=== PATIENT | female | born 1985 ===

== ENCOUNTER 2019-06-04 18:24 | Emergency (ER) | payer BC, OTHER ==
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
== END 2019-06-04 19:25 | disposition home or self-care (01) ==
LOC: MW.ED 18:24
DX: Z04.1 Encounter for examination and observation following transport accident (principal); Z3A.12 12 weeks gestation of pregnancy
CPT/HCPCS: 99283

== ENCOUNTER 2019-11-29 13:44 | Inpatient (IN) | payer BC, OTHER ==
[2019-11-29] MEDS ORDERED: Nalbuphine 10 MG/1 ML Vial IVPUSH PRN (15:15)
[2019-11-29] MEDS ORDERED: Water For Irrigation,Sterile 1,000 ML Container IRR PRN (15:15)
[2019-11-29] MEDS ORDERED: Sodium Chloride 0.9% 10 ML SDV IV PRN (15:15)
[2019-11-29] MEDS ORDERED: Methylergonovine 0.2 MG/1 ML Amp IM PRN (15:15)
[2019-11-29] MEDS ORDERED: Misoprostol 200 MCG Tab PO PRN (15:15)
[2019-11-29] MEDS ORDERED: Oxytocin/0.9 % Sodium Chloride 30 UNIT/500 ML BAG IV SCH ×2 (15:15)
[2019-11-29] MEDS ORDERED: Butorphanol 1 MG/ML SDV IVPUSH PRN (15:15)
[2019-11-29] MEDS ORDERED: Misoprostol 25 MCG (1/4 of 100 MCG) Tab VAG PRN ×2 (15:15)
[2019-11-29] MEDS ORDERED: Terbutaline 1 MG/ML SDV SUBCUT PRN (15:15)
[2019-11-29] MEDS ORDERED: Lidocaine 1% 50 ML MDV INJECT PRN (15:15)
[2019-11-29] MEDS ORDERED: Tranexamic Acid 1,000 MG in Sodium Chloride 0.9% 100 ML IV PRN (15:15)
[2019-11-29] MEDS ORDERED: Carboprost Tromethamine 250 MCG/1 ML Amp IM PRN (15:15)
[2019-11-29] MEDS ORDERED: Sodium Chloride 0.9% 2.5 ML Syringe FLUSH PRN (15:15)
[2019-11-29] MEDS ORDERED: Sodium Chloride 0.9% 10 ML Syringe FLUSH PRN (15:15)
[2019-11-29] MEDS ORDERED: Ondansetron 4 MG/2 ML SDV IVPUSH PRN (15:15)
[2019-11-29] MEDS ORDERED: Misoprostol 25 MCG (1/4 of 100 MCG) Tab PO ONE (15:22)
[2019-11-29] MEDS ORDERED: [UNRECOGNIZED DRUG - REMARK] PO SCH (15:30)
--- NOTE | 2019-11-29 15:50 | PCM.LDHP ---
L&D History of Present Illness - General Date of Service: 11/29/19 Admit Problem/Dx: Patient Status Order with Admit Dx/Problem 11/29/19 14:27 Patient Status [ADT] Routine Admission Diagnosis/Problem Admission Diagnosis/Problem 11/29/19 15:45 34 yo presenting for IOL at 38 5/7 weeks (EDC: 12/09/19), AMA, O+, Rubella Immune, GBS negative Source of Information: Patient History Limitations: Reports: No Limitations - Related Data Allergies/Adverse Reactions: Allergies Allergy/AdvReac Type Severity Reaction Status Date / Time No Known Allergies Allergy Verified 06/04/19 18:45 Home Medications: Home Meds Comb No.42/Folic Acid [Prena1 Chew Tablet] 1.4 mg PO ASDIRECTED [History] 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: - Infectious Disease History Infectious Disease History: Reports: Chicken Pox Social & Family History - Family History Family Medical History: Noncontributory - Caffeine Use Caffeine Use: Reports: None H&P Review of Systems - Review of Systems: Review Of Systems: See Below General: Reports: No Symptoms HEENT: Reports: No Symptoms Pulmonary: Reports: No Symptoms Cardiovascular: Reports: No Symptoms Gastrointestinal: Reports: No Symptoms Genitourinary: Reports: No Symptoms Musculoskeletal: Reports: No Symptoms Skin: Reports: No Symptoms Psychiatric: Reports: No Symptoms Neurological: Reports: No Symptoms Hematologic/Lymphatic: Reports: No Symptoms Immunologic: Reports: No Symptoms L&D Exam - Exam Exam: See Below - Vital Signs Weight: 245 lb - OB Specific Presentation: Transverse - Exam General: Alert, Oriented, Cooperative Lungs: Normal Respiratory Effort GI/Abdominal Exam: Soft, Non-Tender Rectal Exam: Deferred Genitourinary: Deferred Back Exam: Normal Inspection, Full Range of Motion Extremities: Normal Inspection, Normal Range of Motion, Non-Tender Skin: Warm, Dry, Intact Neurological: Strength Equal Bilateral, Normal Gait, Normal Speech, Normal Tone , Sensation Intact Psychiatric: Alert, Normal Affect, Normal Mood - Patient Data Lab Results Last 24 hrs: Laboratory Results - last 24 hr 11/29/19 Range/Units 14:22 Membrane Rupture NEGATIVE - Problem List (1) Supervision of normal IUP (intrauterine ) in multigravida SNOMED Code(s): 921263482, 891808397, 831564585 ICD Code: Z34.80 - ENCOUNTER FOR SUPRVSN OF NORMAL , UNSP TRIMESTER Status: Acute Priority: High Current Visit: Yes Qualifiers: Trimester: third trimester Qualified Code(s): Z34.83 - Encounter for supervision of other normal , third trimester Problem List Initiated/Reviewed/Updated: Yes Orders Last 24hrs: Active Orders 24 hr Category Date Time Status Patient Status [ADT] Routine ADT 11/29/19 14:27 Active Bedrest Bathroom Privileges [RC] ASDIRECTED Care 11/29/19 15:15 Active Communication Order [RC] ASDIRECTED Care 11/29/19 15:15 Active Communication Order [RC] ASDIRECTED Care 11/29/19 15:15 Active Heart Tones [RC] CONTINUOUS Care 11/29/19 15:15 Active Non Stress Test [RC] PER UNIT ROUTINE Care 11/29/19 14:27 Active May Shower [RC] ASDIRECTED Care 11/29/19 15:15 Active Notify Provider [RC] PRN Care 11/29/19 15:15 Active Notify Provider [RC] PRN Care 11/29/19 15:15 Active Notify Provider [RC] STAT Care 11/29/19 15:15 Active Oxygen Therapy [RC] ASDIRECTED Care 11/29/19 15:15 Active Up ad Ghazala [RC] ASDIRECTED Care 11/29/19 14:27 Active Vaginal Exam [RC] Click to Edit Care 11/29/19 14:27 Active Vaginal Exam [RC] PRN Care 11/29/19 15:15 Active Vaginal Exam [RC] PRN Care 11/29/19 15:15 Active Vital Signs [RC] PER UNIT ROUTINE Care 11/29/19 14:27 Active Vital Signs [RC] PER UNIT ROUTINE Care 11/29/19 15:15 Active CBC W/O DIFF,HEMOGRAM [HEME] Routine Lab 11/29/19 15:34 Received RPR (SYPHILIS SERO) W/ RFLX [REF] Routine Lab 11/29/19 15:34 Received TYPE AND SCREEN [BBK] Routine Lab 11/29/19 15:34 Received Butorphanol [Stadol] Med 11/29/19 15:15 Active 1 mg IVPUSH Q1H PRN Carboprost Tromethamine [Hemabate DS] Med 11/29/19 15:15 Active 250 mcg IM ASDIRECTED PRN Lactated Ringers [Ringers, Lactated] 1,000 ml Med 11/29/19 15:15 Active IV ASDIRECTED Lidocaine 1% [Xylocaine 1%] Med 11/29/19 15:15 Active 50 ml INJECT ONETIME PRN Methylergonovine [Methergine] Med 11/29/19 15:15 Active 0.2 mg IM ASDIRECTED PRN Nalbuphine [Nubain] Med 11/29/19 15:15 Active 10 mg IVPUSH Q1H PRN Ondansetron [Zofran] Med 11/29/19 15:15 Active 4 mg IVPUSH Q4H PRN Oxytocin/0.9 % Sodium Chloride [Oxytocin 30 Unit/500 ML Med 11/29/19 15:15 Active -NS] 30 unit in 500 ml IV TITRATE Oxytocin/0.9 % Sodium Chloride [Oxytocin 30 Unit/500 ML Med 11/29/19 15:15 Active -NS] 30 unit in 500 ml IV TITRATE Patient's Own Medication [Ptom] Med 11/29/19 15:30 Active 1 each PO ASDIRECTED Sodium Chloride 0.9% [Normal Saline] [facility] 11/29/19 15:15 Active 10 ml IV ASDIRECTED PRN Sodium Chloride 0.9% [Saline Flush] [facility] 11/29/19 15:15 Active 10 ml FLUSH ASDIRECTED PRN Sodium Chloride 0.9% [Saline Flush] Med 11/29/19 15:15 Active 2.5 ml FLUSH ASDIRECTED PRN Terbutaline [Brethine] Med 11/29/19 15:15 Active 0.25 mg SUBCUT ASDIRECTED PRN Tranexamic Acid [Cyklokapron] 1,000 mg Med 11/29/19 15:15 Active Sodium Chloride 0.9% [Normal Saline] 100 ml IV ONETIME Water For Irrigation,Sterile [Sterile Water for Med 11/29/19 15:15 Active Irrigation] 1,000 ml IRR ASDIRECTED PRN miSOPROStoL [Cytotec] Med 11/29/19 15:15 Active 200 mcg PO ONETIME PRN miSOPROStoL [Cytotec] Med 11/29/19 15:15 Active 25 mcg VAG ONETIME PRN miSOPROStoL [Cytotec] Med 11/29/19 15:15 Active 25 mcg VAG Q4H PRN Scalp Electrode [WOMSER] Per Unit Routine Oth 11/29/19 15:15 Ordered Medication Administration Instruction [OM.PC] Q3H Oth 11/29/19 15:15 Ordered Peripheral IV Insertion Adult [OM.PC] Routine Oth 11/29/19 15:15 Ordered Resuscitation Status Routine Resus Stat 11/29/19 14:27 Ordered Medication Orders Butorphanol Tartrate (Stadol) 1 mg IVPUSH Q1H PRN PRN Reason: Pain Carboprost Tromethamine (Hemabate Ds) 250 mcg IM ASDIRECTED PRN PRN Reason: Post Hemorrhage Lactated Ringer's (Ringers, Lactated) 1,000 mls @ 150 mls/hr IV ASDIRECTED DAVEY Oxytocin/Sodium Chloride (Oxytocin 30 Unit/500 Ml-Ns) 30 unit in 500 mls @ 999 mls/hr IV TITRATE DAVEY Oxytocin/Sodium Chloride (Oxytocin 30 Unit/500 Ml-Ns) 30 unit in 500 mls @ 2 mls/hr IV TITRATE DAVEY; Protocol Tranexamic Acid 1,000 mg/ (Sodium Chloride) 110 mls @ 660 mls/hr IV ONETIME PRN PRN Reason: Bleeding Lidocaine HCl (Xylocaine 1%) 50 ml INJECT ONETIME PRN PRN Reason: Laceration repair Methylergonovine Maleate (Methergine) 0.2 mg IM ASDIRECTED PRN PRN Reason: Post Hemorrhage Misoprostol (Cytotec) 200 mcg PO ONETIME PRN PRN Reason: Post Hemorrhage Misoprostol (Cytotec) 25 mcg VAG ONETIME PRN PRN Reason: Cervical Ripening Misoprostol (Cytotec) 25 mcg VAG Q4H PRN PRN Reason: Cervical Ripening Nalbuphine HCl (Nubain) 10 mg IVPUSH Q1H PRN PRN Reason: Pain (severe 7-10) Ondansetron HCl (Zofran) 4 mg IVPUSH Q4H PRN PRN Reason: Nausea/Vomiting Comb No.42/Folic Acid [Prena1 Chew Tablet] 1.4 M 1 each PO ASDIRECTED DAVEY Sodium Chloride (Saline Flush) 10 ml FLUSH ASDIRECTED PRN PRN Reason: Keep Vein Open Sodium Chloride (Saline Flush) 2.5 ml FLUSH ASDIRECTED PRN PRN Reason: Keep Vein Open Sodium Chloride (Normal Saline) 10 ml IV ASDIRECTED PRN PRN Reason: IV Use Sterile Water (Sterile Water For Irrigation) 1,000 ml IRR ASDIRECTED PRN PRN Reason: delivery Terbutaline Sulfate (Brethine) 0.25 mg SUBCUT ASDIRECTED PRN PRN Reason: Tacysystole Assessment/Plan Comment:: Admit: A: 34 yo presenting for IOL at 38 5/7 weeks (EDC: 12/09/19), AMA, O+, Rubella Immune, GBS negative, 2-3cm/50%/-2, soft, posterior P: Admit, pitocin to IVF, anticipate , Dr. Gertrudis sandoval
[2019-11-29] MEDS: Lactated Ringers 1,000 ML IV SCH ×2 (16:02→23:00)
[2019-11-29] MEDS ORDERED: Ropivacaine 0.2% PF 2 MG/ML 20 ML SDV ONE (23:45)
[2019-11-29] MEDS ORDERED: Ropivacaine HCl/PF 100 ML ONE (23:45)
[2019-11-29] MEDS ORDERED: fentaNYL 100 MCG/2 ML SDV ONE (23:45)
[2019-11-30] MEDS: Lactated Ringers 1,000 ML IV SCH
--- NOTE | 2019-11-30 00:26 | PCM.PREANE ---
Preanesthetic Assessment - Procedure Proposed Procedure: Pitocin, active labor, 4cm requests BERNICE. - Anesthesia/Transfusion/Family Hx Anesthesia History: Prior Anesthesia Without Reaction Family History of Anesthesia Reaction: No Transfusion History: No Prior Transfusion(s) Intubation History: Unknown - Review of Systems General: No Symptoms Pulmonary: No Symptoms Cardiovascular: No Symptoms Gastrointestinal: No Symptoms Neurological: No Symptoms Other: Reports: None - Physical Assessment NPO Status Date: 11/29/19 NPO Status Time: 23:30 (Clear liquids) Height: 1.78 m Weight: 111.13 kg ASA Class: 2 Mental Status: Alert & Oriented x3 Dentition: Reports: Normal Dentition Thyro-Mental Finger Breadths: 3 Mouth Opening Finger Breadths: 3 ROM/Head Extension: Full Lungs: Clear to Auscultation Cardiovascular: Regular Rate - Lab Values: Laboratory Last Values WBC 10.96 K/uL (4.0-11.0) 11/29/19 15:34 RBC 4.62 M/uL (4.30-5.90) 11/29/19 15:34 Hgb 11.6 g/dL (12.0-16.0) L 11/29/19 15:34 Hct 33.9 % (36.0-46.0) L 11/29/19 15:34 MCV 73.4 fL (80.0-98.0) L 11/29/19 15:34 MCH 25.1 pg (27.0-32.0) L 11/29/19 15:34 MCHC 34.2 g/dL (31.0-37.0) 11/29/19 15:34 RDW Std Deviation 47.5 fl (28.0-62.0) 11/29/19 15:34 RDW Coeff of Al 18 % (11.0-15.0) H 11/29/19 15:34 Plt Count 228 K/uL (150-400) 11/29/19 15:34 Nucleated RBC % 0.0 /100WBC 11/29/19 15:34 Nucleated RBCs # 0 K/uL 11/29/19 15:34 Membrane Rupture NEGATIVE 11/29/19 14:22 Blood Type O POSITIVE 11/29/19 15:34 Antibody Screen NEGATIVE 11/29/19 15:34 - Allergies Allergies/Adverse Reactions: Allergies Allergy/AdvReac Type Severity Reaction Status Date / Time No Known Allergies Allergy Verified 06/04/19 18:45 - Blood Blood Available: No Product(s) Available: None - Anesthesia Plan Pre-Op Medication Ordered: None - Acknowledgements Anesthesia Type Planned: Epidural Pt an Appropriate Candidate for the Planned Anesthesia: Yes Alternatives and Risks of Anesthesia Discussed w Pt/Guardian: Yes Pt/Guardian Understands and Agrees with Anesthesia Plan: Yes Additional Comments: Discussed, ? answered, permit signed, wishes to proceed. 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: - Infectious Disease History Infectious Disease History: Reports: Chicken Pox - SUBSTANCE USE Smoking Status *Q: Never Smoker Second Hand Smoke Exposure: No Recreational Drug Use History: No - HOME MEDS Home Medications: Home Meds Comb No.42/Folic Acid [Prena1 Chew Tablet] 1.4 mg PO ASDIRECTED [History] - CURRENT (IN HOUSE) MEDS Current Meds: Current Medications Butorphanol Tartrate (Stadol) 1 mg IVPUSH Q1H PRN PRN Reason: Pain Carboprost Tromethamine (Hemabate Ds) 250 mcg IM ASDIRECTED PRN PRN Reason: Post Hemorrhage Lactated Ringer's (Ringers, Lactated) 1,000 mls @ 150 mls/hr IV ASDIRECTED DAVEY Last Admin: 11/30/19 00:00 Dose: 150 mls/hr Oxytocin/Sodium Chloride (Oxytocin 30 Unit/500 Ml-Ns) 30 unit in 500 mls @ 999 mls/hr IV TITRATE DAVEY Oxytocin/Sodium Chloride (Oxytocin 30 Unit/500 Ml-Ns) 30 unit in 500 mls @ 2 mls/hr IV TITRATE DAVEY; Protocol Last Titration: 11/29/19 23:22 Dose: 12 munits/min, 12 mls/hr Tranexamic Acid 1,000 mg/ (Sodium Chloride) 110 mls @ 660 mls/hr IV ONETIME PRN PRN Reason: Bleeding Lidocaine HCl (Xylocaine 1%) 50 ml INJECT ONETIME PRN PRN Reason: Laceration repair Methylergonovine Maleate (Methergine) 0.2 mg IM ASDIRECTED PRN PRN Reason: Post Hemorrhage Misoprostol (Cytotec) 200 mcg PO ONETIME PRN PRN Reason: Post Hemorrhage Misoprostol (Cytotec) 25 mcg VAG ONETIME PRN PRN Reason: Cervical Ripening Misoprostol (Cytotec) 25 mcg VAG Q4H PRN PRN Reason: Cervical Ripening Nalbuphine HCl (Nubain) 10 mg IVPUSH Q1H PRN PRN Reason: Pain (severe 7-10) Last Admin: 11/29/19 22:05 Dose: 10 mg Ondansetron HCl (Zofran) 4 mg IVPUSH Q4H PRN PRN Reason: Nausea/Vomiting Comb No.42/Folic Acid [Prena1 Chew Tablet] 1.4 M 1 each PO ASDIRECTED DAVEY Sodium Chloride (Saline Flush) 10 ml FLUSH ASDIRECTED PRN PRN Reason: Keep Vein Open Sodium Chloride (Saline Flush) 2.5 ml FLUSH ASDIRECTED PRN PRN Reason: Keep Vein Open Sodium Chloride (Normal Saline) 10 ml IV ASDIRECTED PRN PRN Reason: IV Use Sterile Water (Sterile Water For Irrigation) 1,000 ml IRR ASDIRECTED PRN PRN Reason: delivery Terbutaline Sulfate (Brethine) 0.25 mg SUBCUT ASDIRECTED PRN PRN Reason: Tacysystole Discontinued Medications Fentanyl (Sublimaze) Confirm Administered Dose 100 mcg .ROUTE .STK-MED ONE Stop: 11/29/19 23:46 Ropivacaine (Naropin 0.2%) Confirm Administered Dose 100 mls @ as directed .ROUTE .STK-MED ONE Stop: 11/29/19 23:46 Misoprostol (Cytotec) 25 mcg PO ONETIME ONE Stop: 11/29/19 15:23 Ropivacaine (Naropin 0.2%) Confirm Administered Dose 20 ml .ROUTE .STK-MED ONE Stop: 11/29/19 23:46
--- NOTE | 2019-11-30 00:48 | PCM.PRNOTE ---
- Free Text/Narrative Note: Active labor, pain 7/10, on Pitocin, 4cm requests BERNICE. Discussed, ? answered, permit signed. Acceptable candidate. Procedure without issues. See anesthesia record. Test negative. Pain 1/10 post bolus with gtt infusing at 8ml/hr.
--- NOTE | 2019-11-30 02:50 | PCM.DEL ---
L & D Note - General Info Date of Service: 11/30/19 Mother's Due Date: 12/09/19 - Delivery Note Labor: Induced by Oxytocin Delivery Outcome: Livebirth Infant Delivery Method: Spontaneous Vaginal Delivery-Single Presentation: Vertex Nuchal Cord: None Anesthesia Type: Epidural Amniotic Fluid Description: Clear Episiotomy Type: None Laceration: None Placenta: Manual Removal (Manual Removal by Dr. Caba) Cord: 3 Vessels Score 1 min: 6 Score 5 min: 7 Second Stage Interventions: Reports: Second Nurse Assessed Progress of Descent, Second Nurse Reviewed Contraction Pattern, Second Nurse Reviewed Heart Tones, Pushing Effectively, Pushing, Pulls Own Legs Back Delivery Comments (Free Text/Narrative):: viable infant female, head delivered with good pushing, shoulders and body followed easily after, cord clamped and cut at 30 seconds, baby to warmer for assessment and PPV, weight pending, APGARs 6/7, Pitocin to IVF, manual removal of placenta by Dr. Caba, 3VC, EBL 150 mL, perineum intact, mom left in stable condition with nurse at bedside for assessment, baby to nursery with Dr. Escalante and respiratory present to assess baby - General Info Date of Service: 11/30/19 Admission Dx/Problem (Free Text): Patient Status Order with Admit Dx/Problem 11/29/19 14:27 Patient Status [ADT] Routine Admission Diagnosis/Problem Admission Diagnosis/Problem 11/29/19 15:45 34 yo presenting for IOL at 38 5/7 weeks (EDC: 12/09/19), AMA, O+, Rubella Immune, GBS negative Functional Status: Reports: Pain Controlled - Review of Systems General: Reports: No Symptoms HEENT: Reports: No Symptoms Pulmonary: Reports: No Symptoms Cardiovascular: Reports: No Symptoms Gastrointestinal: Reports: No Symptoms Genitourinary: Reports: No Symptoms Musculoskeletal: Reports: No Symptoms Skin: Reports: No Symptoms Neurological: Reports: No Symptoms Psychiatric: Reports: No Symptoms - Patient Data Weight - Most Recent: 245 lb Lab Results Last 24 Hours: Laboratory Results - last 24 hr 11/29/19 11/29/19 11/29/19 Range/Units 14:22 15:34 15:34 WBC 10.96 (4.0-11.0) K/uL RBC 4.62 (4.30-5.90) M/uL Hgb 11.6 L (12.0-16.0) g/dL Hct 33.9 L (36.0-46.0) % MCV 73.4 L (80.0-98.0) fL MCH 25.1 L (27.0-32.0) pg MCHC 34.2 (31.0-37.0) g/dL RDW Std Deviation 47.5 (28.0-62.0) fl RDW Coeff of Al 18 H (11.0-15.0) % Plt Count 228 (150-400) K/uL Nucleated RBC % 0.0 /100WBC Nucleated RBCs # 0 K/uL Membrane Rupture NEGATIVE Blood Type O POSITIVE Antibody Screen NEGATIVE Med Orders - Current: Current Medications Butorphanol Tartrate (Stadol) 1 mg IVPUSH Q1H PRN PRN Reason: Pain Carboprost Tromethamine (Hemabate Ds) 250 mcg IM ASDIRECTED PRN PRN Reason: Post Hemorrhage Lactated Ringer's (Ringers, Lactated) 1,000 mls @ 150 mls/hr IV ASDIRECTED DAVEY Last Admin: 11/30/19 00:00 Dose: 150 mls/hr Oxytocin/Sodium Chloride (Oxytocin 30 Unit/500 Ml-Ns) 30 unit in 500 mls @ 999 mls/hr IV TITRATE DAVEY Oxytocin/Sodium Chloride (Oxytocin 30 Unit/500 Ml-Ns) 30 unit in 500 mls @ 2 mls/hr IV TITRATE DAVEY; Protocol Last Titration: 11/30/19 00:37 Dose: 14 munits/min, 14 mls/hr Tranexamic Acid 1,000 mg/ (Sodium Chloride) 110 mls @ 660 mls/hr IV ONETIME PRN PRN Reason: Bleeding Lidocaine HCl (Xylocaine 1%) 50 ml INJECT ONETIME PRN PRN Reason: Laceration repair Methylergonovine Maleate (Methergine) 0.2 mg IM ASDIRECTED PRN PRN Reason: Post Hemorrhage Misoprostol (Cytotec) 200 mcg PO ONETIME PRN PRN Reason: Post Hemorrhage Misoprostol (Cytotec) 25 mcg VAG ONETIME PRN PRN Reason: Cervical Ripening Misoprostol (Cytotec) 25 mcg VAG Q4H PRN PRN Reason: Cervical Ripening Nalbuphine HCl (Nubain) 10 mg IVPUSH Q1H PRN PRN Reason: Pain (severe 7-10) Last Admin: 11/29/19 22:05 Dose: 10 mg Ondansetron HCl (Zofran) 4 mg IVPUSH Q4H PRN PRN Reason: Nausea/Vomiting Comb No.42/Folic Acid [Prena1 Chew Tablet] 1.4 M 1 each PO ASDIRECTED DAVEY Sodium Chloride (Saline Flush) 10 ml FLUSH ASDIRECTED PRN PRN Reason: Keep Vein Open Sodium Chloride (Saline Flush) 2.5 ml FLUSH ASDIRECTED PRN PRN Reason: Keep Vein Open Sodium Chloride (Normal Saline) 10 ml IV ASDIRECTED PRN PRN Reason: IV Use Sterile Water (Sterile Water For Irrigation) 1,000 ml IRR ASDIRECTED PRN PRN Reason: delivery Terbutaline Sulfate (Brethine) 0.25 mg SUBCUT ASDIRECTED PRN PRN Reason: Tacysystole Discontinued Medications Fentanyl (Sublimaze) Confirm Administered Dose 100 mcg .ROUTE .STK-MED ONE Stop: 11/29/19 23:46 Ropivacaine (Naropin 0.2%) Confirm Administered Dose 100 mls @ as directed .ROUTE .STK-MED ONE Stop: 11/29/19 23:46 Misoprostol (Cytotec) 25 mcg PO ONETIME ONE Stop: 11/29/19 15:23 Ropivacaine (Naropin 0.2%) Confirm Administered Dose 20 ml .ROUTE .STK-MED ONE Stop: 11/29/19 23:46 - Exam General: Alert, Oriented, Cooperative, No Acute Distress Lungs: Normal Respiratory Effort GI/Abdominal Exam: Soft, Non-Tender (Female) Exam: Normal Bimanual Exam Back Exam: Normal Inspection Extremities: Normal Inspection, Non-Tender, Normal Capillary Refill Skin: Warm, Dry, Intact Neurological: No New Focal Deficit, Normal Speech, Normal Tone Psy/Mental Status: Alert, Normal Affect, Normal Mood - Problem List & Annotations (1) Supervision of normal IUP (intrauterine ) in multigravida SNOMED Code(s): 939912433, 910557553, 366787925 Code(s): Z34.80 - ENCOUNTER FOR SUPRVSN OF NORMAL , UNSP TRIMESTER Status: Acute Priority: High Current Visit: Yes Qualifiers: Trimester: third trimester Qualified Code(s): Z34.83 - Encounter for supervision of other normal , third trimester (2) (normal spontaneous vaginal delivery) SNOMED Code(s): 14994873, 736014410 Code(s): O80 - ENCOUNTER FOR FULL-TERM UNCOMPLICATED DELIVERY Status: Acute Priority: High Current Visit: Yes - Problem List Review Problem List Initiated/Reviewed/Updated: Yes - Plan Plan:: Admit A: 34 yo presenting for IOL at 38 5/7 weeks (EDC: 12/09/19), AMA, O+, Rubella Immune, GBS negative, 2-3cm/50%/-2, soft, posterior P: Admit, pitocin to IVF, anticipate , Dr. Caba updated Labor A: viable female, cord clamped and cut at 30 seconds, baby to warmer for assessment and PPV, weight pending, APGARs 6/7, Pitocin to IVF, manual removal of placenta by Dr. Caba, 3VC, EBL 150 mL, perineum intact, mom left in stable condition with nurse at bedside for assessment, baby to nursery with Dr. Escalante and respiratory present for assessment P: Routine plan of care. Dr. Caba updated.
[2019-11-30] MEDS ORDERED: oxyCODONE 5 MG Tab PO PRN (03:06)
[2019-11-30] MEDS ORDERED: Docusate Sodium 100 MG Cap PO PRN (03:06)
[2019-11-30] MEDS ORDERED: Lanolin 100% Cream 7 GM Tube TOP PRN (03:06)
[2019-11-30] MEDS ORDERED: Benzocaine/Menthol 20%-0.5% Spray 78 GM Cannister TOP PRN (03:06)
[2019-11-30] MEDS ORDERED: Ibuprofen 800 MG Tab PO PRN (03:06)
[2019-11-30] MEDS ORDERED: Ibuprofen 400 MG Tab PO PRN (03:06)
[2019-11-30] MEDS ORDERED: Acetaminophen 500 MG Tab PO PRN ×2 (03:06)
[2019-11-30] MEDS ORDERED: Bisacodyl 10 MG Supp RECTAL PRN (03:06)
[2019-11-30] MEDS ORDERED: Witch Hazel Medicated Pads 40/Jar TOP PRN (03:06)
--- NOTE | 2019-11-30 10:46 | PCM.PNPP ---
- General Info Date of Service: 11/30/19 Admission Dx/Problem (Free Text): Patient Status Order with Admit Dx/Problem 11/29/19 14:27 Patient Status [ADT] Routine Admission Diagnosis/Problem Admission Diagnosis/Problem 11/29/19 15:45 34 yo presenting for IOL at 38 5/7 weeks (EDC: 12/09/19), AMA, O+, Rubella Immune, GBS negative Functional Status: Reports: Pain Controlled - Review of Systems General: Reports: No Symptoms HEENT: Reports: No Symptoms Pulmonary: Reports: No Symptoms Cardiovascular: Reports: No Symptoms Gastrointestinal: Reports: No Symptoms Genitourinary: Reports: No Symptoms Musculoskeletal: Reports: No Symptoms Skin: Reports: No Symptoms Neurological: Reports: No Symptoms Psychiatric: Reports: No Symptoms - General Info Date of Service: 11/30/19 - Patient Data Vital Signs - Most Recent: Last Vital Signs Temp 97.8 F 11/30/19 08:01 Pulse Resp 14 11/30/19 08:01 BP 129/78 11/30/19 08:01 Pulse Ox 96 11/30/19 08:01 Weight - Most Recent: 245 lb Lab Results - Last 24 Hours: Laboratory Results - last 24 hr 11/29/19 11/29/19 11/29/19 Range/Units 14:22 15:34 15:34 WBC 10.96 (4.0-11.0) K/uL RBC 4.62 (4.30-5.90) M/uL Hgb 11.6 L (12.0-16.0) g/dL Hct 33.9 L (36.0-46.0) % MCV 73.4 L (80.0-98.0) fL MCH 25.1 L (27.0-32.0) pg MCHC 34.2 (31.0-37.0) g/dL RDW Std Deviation 47.5 (28.0-62.0) fl RDW Coeff of Al 18 H (11.0-15.0) % Plt Count 228 (150-400) K/uL Nucleated RBC % 0.0 /100WBC Nucleated RBCs # 0 K/uL Membrane Rupture NEGATIVE Blood Type O POSITIVE Antibody Screen NEGATIVE Med Orders - Current: Current Medications Acetaminophen (Tylenol Extra Strength) 500 mg PO Q4H PRN PRN Reason: Pain Acetaminophen (Tylenol Extra Strength) 1,000 mg PO Q4H PRN PRN Reason: Pain Benzocaine/Menthol (Dermoplast Pain Relief 20%-0.5% [place]) 78 gm TOP ASDIRECTED PRN PRN Reason: Perineal Comfort Measure Bisacodyl (Dulcolax) 10 mg RECTAL ONETIME PRN PRN Reason: Constipation Docusate Sodium (Colace) 100 mg PO BID PRN PRN Reason: Constipation Emollient Ointment (Lansinoh Hpa) 0 gm TOP ASDIRECTED PRN PRN Reason: Sore Nipples Ibuprofen (Motrin) 400 mg PO Q4H PRN PRN Reason: Pain Ibuprofen (Motrin) 800 mg PO Q6H PRN PRN Reason: Pain Oxycodone HCl (Oxycodone) 5 mg PO Q2H PRN PRN Reason: Pain Witch Maria Eugenia (Tucks) 1 pad TOP ASDIRECTED PRN PRN Reason: comfort care Discontinued Medications Butorphanol Tartrate (Stadol) 1 mg IVPUSH Q1H PRN PRN Reason: Pain Carboprost Tromethamine (Hemabate Ds) 250 mcg IM ASDIRECTED PRN PRN Reason: Post Hemorrhage Fentanyl (Sublimaze) Confirm Administered Dose 100 mcg .ROUTE .[facility] ONE Stop: 11/29/19 23:46 Lactated Ringer's (Ringers, Lactated) 1,000 mls @ 150 mls/hr IV ASDIRECTED [facility] Last Admin: 11/30/19 00:00 Dose: 150 mls/hr Oxytocin/Sodium Chloride (Oxytocin 30 Unit/500 Ml-Ns) 30 unit in 500 mls @ 999 mls/hr IV TITRATE [facility]AVEY Oxytocin/Sodium Chloride (Oxytocin 30 Unit/500 Ml-Ns) 30 unit in 500 mls @ 2 mls/hr IV TITRATE [facility]; Protocol Last Titration: 11/30/19 00:37 Dose: 14 munits/min, 14 mls/hr Tranexamic Acid 1,000 mg/ (Sodium Chloride) 110 mls @ 660 mls/hr IV ONETIME PRN PRN Reason: Bleeding Ropivacaine (Naropin 0.2%) Confirm Administered Dose 100 mls @ as directed .ROUTE .[facility] ONE Stop: 11/29/19 23:46 Lidocaine HCl (Xylocaine 1%) 50 ml INJECT ONETIME PRN PRN Reason: Laceration repair Methylergonovine Maleate (Methergine) 0.2 mg IM ASDIRECTED PRN PRN Reason: Post Hemorrhage Misoprostol (Cytotec) 200 mcg PO ONETIME PRN PRN Reason: Post Hemorrhage Misoprostol (Cytotec) 25 mcg VAG ONETIME PRN PRN Reason: Cervical Ripening Misoprostol (Cytotec) 25 mcg VAG Q4H PRN PRN Reason: Cervical Ripening Misoprostol (Cytotec) 25 mcg PO ONETIME ONE Stop: 11/29/19 15:23 Nalbuphine HCl (Nubain) 10 mg IVPUSH Q1H PRN PRN Reason: Pain (severe 7-10) Last Admin: 11/29/19 22:05 Dose: 10 mg Ondansetron HCl (Zofran) 4 mg IVPUSH Q4H PRN PRN Reason: Nausea/Vomiting Comb No.42/Folic Acid [Prena1 Chew Tablet] 1.4 M 1 each PO ASDIRECTED [facility] Ropivacaine (Naropin 0.2%) Confirm Administered Dose 20 ml .ROUTE .[facility] ONE Stop: 11/29/19 23:46 Sodium Chloride (Saline Flush) 10 ml FLUSH ASDIRECTED PRN PRN Reason: Keep Vein Open Sodium Chloride (Saline Flush) 2.5 ml FLUSH ASDIRECTED PRN PRN Reason: Keep Vein Open Sodium Chloride (Normal Saline) 10 ml IV ASDIRECTED PRN PRN Reason: IV Use Sterile Water (Sterile Water For Irrigation) 1,000 ml IRR ASDIRECTED PRN PRN Reason: delivery Terbutaline Sulfate (Brethine) 0.25 mg SUBCUT ASDIRECTED PRN PRN Reason: Tacysystole - Interaction Infant Disposition, : [place] in Room with Family Feeding: Attempted ; Nursed Fair/Poor, Bottle Fed Support Person: - Recovery Exam Fundal Tone: Firm Fundal Level: 1 Fingerbreadths Below Umbilicus Fundal Placement: Midline Lochia Amount: Scant Episiotomy/Laceration: None Bladder Status: Voiding - Exam General: Alert, Oriented, Cooperative, No Acute Distress Lungs: Normal Respiratory Effort GI/Abdominal Exam: Soft, Non-Tender Extremities: Normal Inspection, Normal Range of Motion, Non-Tender, Normal Capillary Refill Skin: Warm, Dry, Intact Neurological: No New Focal Deficit, Normal Gait, Normal Speech, Normal Tone, Strength Equal Bilateral, Sensation Intact Psy/Mental Status: Alert, Normal Affect, Normal Mood - Problem List & Annotations (1) Supervision of normal IUP (intrauterine ) in multigravida SNOMED Code(s): 469867452, 545280515, 351293463 Code(s): Z34.80 - ENCOUNTER FOR SUPRVSN OF NORMAL , UNSP TRIMESTER Status: Acute Priority: High Current Visit: Yes Qualifiers: Trimester: third trimester Qualified Code(s): Z34.83 - Encounter for supervision of other normal , third trimester (2) (normal spontaneous vaginal delivery) SNOMED Code(s): 95684630, 000532633 Code(s): O80 - ENCOUNTER FOR FULL-TERM UNCOMPLICATED DELIVERY Status: Acute Priority: High Current Visit: Yes - Problem List Review Problem List Initiated/Reviewed/Updated: Yes - My Orders Last 24 Hours: My Active Orders 11/30/19 03:06 Patient Status [ADT] Routine May Shower [RC] ASDIRECTED Up ad Ghazala [RC] ASDIRECTED Vital Signs [RC] PER UNIT ROUTINE Acetaminophen [Tylenol Extra Strength] 1,000 mg PO Q4H PRN Acetaminophen [Tylenol Extra Strength] 500 mg PO Q4H PRN Benzocaine/Menthol [Dermoplast Pain Relief 20%-0.5% [place]] 78 gm TOP ASDIRECTED PRN Docusate Sodium [Colace] 100 mg PO BID PRN Ibuprofen [Motrin] 400 mg PO Q4H PRN Ibuprofen [Motrin] 800 mg PO Q6H PRN Lanolin [Lansinoh HPA] See Dose Instructions TOP ASDIRECTED PRN bisacodyL [Dulcolax] 10 mg RECTAL ONETIME PRN oxyCODONE 5 mg PO Q2H PRN witch Maria Eugenia [Tucks] 1 pad TOP ASDIRECTED PRN Assess Lochia [WOMSER] Per Unit Routine Assess Uterine Involution [WOMSER] Per Unit Routine Peripheral IV Discontinue [OM.PC] Routine Resuscitation Status Routine 12/01/19 05:11 HEMOGLOBIN/HEMATOCRIT,HH [HEME] Timed - Plan Plan:: Admit A: 34 yo presenting for IOL at 38 5/7 weeks (EDC: 12/09/19), AMA, O+, Rubella Immune, GBS negative, 2-3cm/50%/-2, soft, posterior P: Admit, pitocin to IVF, anticipate , Dr. Caba updated Labor A: viable female, cord clamped and cut at 30 seconds, baby to warmer for assessment and PPV, weight pending, APGARs 6/7, Pitocin to IVF, manual removal of placenta by Dr. Caba, 3VC, EBL 150 mL, perineum intact, mom left in stable condition with nurse at bedside for assessment, baby to nursery with Dr. Escalante and respiratory present for assessment P: Routine plan of care. Dr. Caba updated. PP Day 1 A: Doing well. Ambulating and urinating without difficulty. Denies pain at this time. Bottle feeding with plans to breastfeed as well. P: Routine plan of care. Dr. Caba updated.
--- NOTE | 2019-11-30 12:03 | PCM48HPAN ---
Post Anesthesia Note - EVALUATION WITHIN 48HRS OF ANESTHETIC Vital Signs in Normal Range: Yes Patient Participated in Evaluation: Yes Respiratory Function Stable: Yes Airway Patent: Yes Cardiovascular Function Stable: Yes Hydration Status Stable: Yes Pain Control Satisfactory: Yes Nausea and Vomiting Control Satisfactory: Yes Mental Status Recovered: Yes Vital Signs: Last Vital Signs Temp 36.6 C 11/30/19 08:01 Pulse Resp 14 11/30/19 08:01 BP 129/78 11/30/19 08:01 Pulse Ox 96 11/30/19 08:01 - COMMENTS/OBSERVATIONS Free Text/Narrative:: Doing well.
--- NOTE | 2019-12-01 07:46 | PCM.DCSUM1 ---
Discharge Summary - Hospital Course Free Text/Narrative:: Discharge home with baby. Follow up in 6 weeks for visit. Diagnosis: Stroke: No Modified Sultana Scale: No Symptoms at All Modified Sultana Scale Score: 0 - Discharge Data Discharge Date: 12/01/19 Discharge Disposition: Home, Self-Care 01 Condition: Good - Referral to Home Health Primary Care Physician: Shaheen Caba MD - Discharge Diagnosis/Problem(s) (1) Supervision of normal IUP (intrauterine ) in multigravida SNOMED Code(s): 276836543, 575308714, 591329224 ICD Code: Z34.80 - ENCOUNTER FOR SUPRVSN OF NORMAL , UNSP TRIMESTER Status: Acute Priority: High Current Visit: Yes Qualifiers: Trimester: third trimester Qualified Code(s): Z34.83 - Encounter for supervision of other normal , third trimester (2) (normal spontaneous vaginal delivery) SNOMED Code(s): 13728422, 742419999 ICD Code: O80 - ENCOUNTER FOR FULL-TERM UNCOMPLICATED DELIVERY Status: Acute Priority: High Current Visit: Yes - Patient Instructions Diet: Regular Diet as Tolerated, Drink 8-10+ Glasses/Day Activity: As Tolerated, No Strenuous Activities, Rest and Relax Today Driving: May Drive Today Showering/Bathing: May Shower Notify Provider of: Fever, Increased Pain, Swelling and Redness, Drainage, Nausea and/or Vomiting - Discharge Plan *PRESCRIPTION DRUG MONITORING PROGRAM REVIEWED*: Not Applicable *COPY OF PRESCRIPTION DRUG MONITORING REPORT IN PATIENT LA: Not Applicable Home Medications: Home Meds Comb No.42/Folic Acid [Prena1 Chew Tablet] 1.4 mg PO ASDIRECTED [History] Oxygen Therapy Mode: Room Air Patient Handouts: and Inducing , Vaginal Delivery, Care After - Discharge Summary/Plan Comment DC Time >30 min.: Yes - General Info Date of Service: 12/01/19 Admission Dx/Problem (Free Text: Patient Status Order with Admit Dx/Problem 11/29/19 14:27 Patient Status [ADT] Routine Admission Diagnosis/Problem Admission Diagnosis/Problem 11/29/19 15:45 34 yo presenting for IOL at 38 5/7 weeks (EDC: 12/09/19), AMA, O+, Rubella Immune, GBS negative Functional Status: Reports: Pain Controlled, Tolerating Diet, Ambulating, Urinating - Review of Systems General: Reports: No Symptoms HEENT: Reports: No Symptoms Pulmonary: Reports: No Symptoms Cardiovascular: Reports: No Symptoms Gastrointestinal: Reports: No Symptoms Genitourinary: Reports: No Symptoms Musculoskeletal: Reports: No Symptoms Skin: Reports: No Symptoms Neurological: Reports: No Symptoms Psychiatric: Reports: No Symptoms - Patient Data Vitals - Most Recent: Last Vital Signs Temp 97.1 F 12/01/19 05:00 Pulse 87 12/01/19 05:00 Resp 16 12/01/19 05:00 BP 121/86 12/01/19 05:00 Pulse Ox 98 12/01/19 05:00 Weight - Most Recent: 245 lb Lab Results - Last 24 hrs: Laboratory Results - last 24 hr 12/01/19 Range/Units 05:30 Hgb 11.0 L (12.0-16.0) g/dL Hct 33.8 L (36.0-46.0) % Med Orders - Current: Current Medications Acetaminophen (Tylenol Extra Strength) 500 mg PO Q4H PRN PRN Reason: Pain Acetaminophen (Tylenol Extra Strength) 1,000 mg PO Q4H PRN PRN Reason: Pain Last Admin: 11/30/19 16:25 Dose: 1,000 mg Benzocaine/Menthol (Dermoplast Pain Relief 20%-0.5% [place]) 78 gm TOP ASDIRECTED PRN PRN Reason: Perineal Comfort Measure Bisacodyl (Dulcolax) 10 mg RECTAL ONETIME PRN PRN Reason: Constipation Docusate Sodium (Colace) 100 mg PO BID PRN PRN Reason: Constipation Emollient Ointment (Lansinoh Hpa) 0 gm TOP ASDIRECTED PRN PRN Reason: Sore Nipples Ibuprofen (Motrin) 400 mg PO Q4H PRN PRN Reason: Pain Ibuprofen (Motrin) 800 mg PO Q6H PRN PRN Reason: Pain Oxycodone HCl (Oxycodone) 5 mg PO Q2H PRN PRN Reason: Pain Witch Maria Eugenia (Tucks) 1 pad TOP ASDIRECTED PRN PRN Reason: comfort care Discontinued Medications Butorphanol Tartrate (Stadol) 1 mg IVPUSH Q1H PRN PRN Reason: Pain Carboprost Tromethamine (Hemabate Ds) 250 mcg IM ASDIRECTED PRN PRN Reason: Post Hemorrhage Fentanyl (Sublimaze) Confirm Administered Dose 100 mcg .ROUTE .[facility] ONE Stop: 11/29/19 23:46 Lactated Ringer's (Ringers, Lactated) 1,000 mls @ 150 mls/hr IV ASDIRECTED [facility] Last Admin: 11/30/19 00:00 Dose: 150 mls/hr Oxytocin/Sodium Chloride (Oxytocin 30 Unit/500 Ml-Ns) 30 unit in 500 mls @ 999 mls/hr IV TITRATE [facility] Oxytocin/Sodium Chloride (Oxytocin 30 Unit/500 Ml-Ns) 30 unit in 500 mls @ 2 mls/hr IV TITRATE [facility]; Protocol Last Titration: 11/30/19 00:37 Dose: 14 munits/min, 14 mls/hr Tranexamic Acid 1,000 mg/ (Sodium Chloride) 110 mls @ 660 mls/hr IV ONETIME PRN PRN Reason: Bleeding Ropivacaine (Naropin 0.2%) Confirm Administered Dose 100 mls @ as directed .ROUTE .[facility] ONE Stop: 11/29/19 23:46 Lidocaine HCl (Xylocaine 1%) 50 ml INJECT ONETIME PRN PRN Reason: Laceration repair Methylergonovine Maleate (Methergine) 0.2 mg IM ASDIRECTED PRN PRN Reason: Post Hemorrhage Misoprostol (Cytotec) 200 mcg PO ONETIME PRN PRN Reason: Post Hemorrhage Misoprostol (Cytotec) 25 mcg VAG ONETIME PRN PRN Reason: Cervical Ripening Misoprostol (Cytotec) 25 mcg VAG Q4H PRN PRN Reason: Cervical Ripening Misoprostol (Cytotec) 25 mcg PO ONETIME ONE Stop: 11/29/19 15:23 Nalbuphine HCl (Nubain) 10 mg IVPUSH Q1H PRN PRN Reason: Pain (severe 7-10) Last Admin: 11/29/19 22:05 Dose: 10 mg Ondansetron HCl (Zofran) 4 mg IVPUSH Q4H PRN PRN Reason: Nausea/Vomiting Comb No.42/Folic Acid [Prena1 Chew Tablet] 1.4 M 1 each PO ASDIRECTED [facility] Ropivacaine (Naropin 0.2%) Confirm Administered Dose 20 ml .ROUTE .[employer] ONE Stop: 11/29/19 23:46 Sodium Chloride (Saline Flush) 10 ml FLUSH ASDIRECTED PRN PRN Reason: Keep Vein Open Sodium Chloride (Saline Flush) 2.5 ml FLUSH ASDIRECTED PRN PRN Reason: Keep Vein Open Sodium Chloride (Normal Saline) 10 ml IV ASDIRECTED PRN PRN Reason: IV Use Sterile Water (Sterile Water For Irrigation) 1,000 ml IRR ASDIRECTED PRN PRN Reason: delivery Terbutaline Sulfate (Brethine) 0.25 mg SUBCUT ASDIRECTED PRN PRN Reason: Tacysystole - Exam General: Reports: Alert, Oriented, Cooperative, No Acute Distress Lungs: Reports: Normal Respiratory Effort GI/Abdominal Exam: Soft, Non-Tender (Female) Exam: Deferred Rectal (Female) Exam: Deferred Back Exam: Reports: Normal Inspection, Full Range of Motion Extremities: Normal Inspection, Normal Range of Motion, Non-Tender, Normal Capillary Refill Skin: Reports: Warm, Dry, Intact Neurological: Reports: No New Focal Deficit, Normal Gait, Normal Speech, Normal Tone, Strength Equal Bilateral, Reflexes Equal Bilateral Psy/Mental Status: Reports: Alert, Normal Affect, Normal Mood
== END 2019-12-01 14:00 | disposition home or self-care (01) | DRG 560 ==
LOC: MW.OBCHECK 13:44 → MW.OB 13:45 → MW.OBCHECK 11-30 02:22 → MW.OB 11-30 02:22 → OBSVTOIN 11-30 02:22 → MW.OB 11-30 06:34
PROVIDERS: ADMIT Obstetrics & Gynecology; ATTEND Obstetrics & Gynecology
PROC: 10E0XZZ Delivery of Products of Conception, External Approach (ICD-10-PCS; principal; 2019-11-30)
PROC: 3E033VJ Introduction of Other Hormone into Peripheral Vein, Percutaneous Approach (ICD-10-PCS; 2019-11-30)
PROC: 3E0R3BZ Introduction of Anesthetic Agent into Spinal Canal, Percutaneous Approach (ICD-10-PCS; 2019-11-30)
DX: O80 Encounter for full-term uncomplicated delivery (principal); Z3A.38 38 weeks gestation of pregnancy; Z37.0 Single live birth; Z79.899 Other long term (current) drug therapy
CPT/HCPCS: 36415; 51702; 59025; 59409; 84112; 85014; 85018; 85027; 86592; 86850; 86900; 86901; A9270-GY; J2300; J2590; J2795; J3010; J7120